=== PATIENT | female | born 1960 | race Caucasian/White ===

== ENCOUNTER → 2016-12-02 | Outpatient (CLI) | payer BC, OTHER ==
[~2016-12-02] MED LIST: ADVIL200 MG PO; CALCIUM CARBON600 MG PO; LEVOTHROID (S100 MCG PO; ONE DAILY FOR1 EAC3 PO
--- NOTE | 2016-12-02 12:52 | NUR ---
Met with patient prior to breast biopsy. Introduced self and role of nurse navigator. Will call patient tomorrow.
== END | disposition disaster alternative care site (69) ==
LOC: GPOC 11-30 11:00 → GBCOE 09:35 → GPOC 10:00
PROC: 0HBU3ZX Excision of Left Breast, Percutaneous Approach, Diagnostic (ICD-10-PCS; principal; 2016-12-02)
DX: R92.0 Mammographic microcalcification found on diagnostic imaging of breast (principal)
CPT/HCPCS: J7050